=== PATIENT | male | born 1950 | race Caucasian/White ===

== ENCOUNTER → 2017-02-18 | Outpatient (CLI) | payer BC | END | disposition home or self-care (01) | LOC: CARD 08:47 | PROVIDERS: ATTEND Psychiatry & Neurology Neurology | DX: G40.309 Generalized idiopathic epilepsy and epileptic syndromes, not intractable, without status epilepticus (principal) ==

== ENCOUNTER 2019-05-20 05:01 | Emergency (ER) | payer BC, MEDICARE ==
[~2019-05-20] VITALS: Ht 182.9 cm; Wt 127.0 kg
[2019-05-20] MEDS ORDERED: METOCLOPRAMIDE HCL 10MG/2ML VIAL IV ONE (07:30)
[2019-05-20] MEDS ORDERED: SODIUM CHLORIDE 0.9% 1,000 ML IV ONE (07:30)
[2019-05-20 07:49] LABS: CLARITY URINE CLEAR (CLEAR); COLOR URINE YELLOW (YELLOW); KETONES URINE NEGATIVE (NEGATIVE); LEUKOCYTE ESTERASE URINE NEGATIVE (NEGATIVE); NITRITE URINE NEGATIVE (NEGATIVE); OCCULT BLOOD URINE 2+ (NEGATIVE); PROTEIN URINE NEGATIVE (NEGATIVE); SPECIFIC GRAVITY URINE 1.019 (1.005-1.030); UROBILINOGEN URINE 0.2 E.U./dL (0.2-1.0)
[2019-05-20] MEDS ORDERED: ONDANSETRON HCL 4MG/2ML INJ IV ONE (08:00)
[2019-05-20 08:31] LABS: HEMATOCRIT. 44.5 % (42.0-52.0); HEMOGLOBIN. 14.9 g/dL (14.0-18.0); MEAN CORPUSCULAR HEMOGLOBIN 31.6 pg (28.0-32.0); MEAN CORPUSCULAR VOLUME 94.6 fL (80.0-94.0); MEAN PLATELET VOLUME 7.8 fl (7.4-10.4); PLATELET 307 x1000/uL (130-400); RED BLOOD CELL COUNT 4.71 mill/uL (4.7-6.1)
[2019-05-20 08:39] LABS: CHLORIDE 107 mEq/L (98-107)
[2019-05-20] MEDS ORDERED: IOHEXOL-300 100 ML BOTTLE ONE (09:47)
[2019-05-20] MEDS ORDERED: MORPHINE SULFATE 4 MG/ML CPJ (NOT FOR IM USE) IV ONE (10:00)
[2019-05-20 10:10] LABS: PLATELET ESTIMATE NORMAL
[2019-05-20] MEDS ORDERED: HYDROCODONE/ACETAMINOPHEN 10/325MG TABLET PO ONE (11:15)
[2019-05-20] MEDS ORDERED: KETOROLAC 15MG/ML VIAL IV ONE (11:45)
[2019-05-20 13:14] VITALS: BP 150/87
== END 2019-05-20 13:35 | disposition home or self-care (01) ==
LOC: ER 05:01
DX: N20.0 Calculus of kidney (principal); E78.00 Pure hypercholesterolemia, unspecified; I10 Essential (primary) hypertension; R56.9 Unspecified convulsions
CPT/HCPCS: 36415; 74177; 80053; 81003; 83690; 85025; 93005; 96361; 96374; 96375; 99284; J1885; J2270; J2405; J2765; J7030; Q9967

== ENCOUNTER 2019-09-30 09:44 | Emergency (ER) | payer MEDICARE ==
[~2019-09-30] VITALS: Ht 182.9 cm; Wt 129.5 kg
[2019-09-30] MEDS ORDERED: LEVO5TAB13 PO (10:13)
[2019-09-30] MEDS ORDERED: PHEN100C12 PO (10:13)
[2019-09-30] MEDS ORDERED: vitamin d2 (10:13)
[2019-09-30] MEDS ORDERED: ASPI-1497 PO (10:13)
[2019-09-30] MEDS ORDERED: ATOR10TA69 PO (10:13)
[2019-09-30] MEDS ORDERED: FOLI-43 PO (10:13)
[2019-09-30] MEDS ORDERED: BENA20TA10 PO (10:13)
[2019-09-30 10:14] VITALS: BP 158/99
== END 2019-09-30 11:34 | disposition home or self-care (01) ==
LOC: ER 09:44
DX: L03.115 Cellulitis of right lower limb (principal); I10 Essential (primary) hypertension; E78.00 Pure hypercholesterolemia, unspecified; F12.10 Cannabis abuse, uncomplicated
CPT/HCPCS: 99283